=== PATIENT | male | born 1975 | race Hispanic/Latino ===

== ENCOUNTER 2016-08-19 14:06 | Emergency (ER) | payer OTHER ==
[2016-08-19 14:09] VITALS: BMI 25.8
[2016-08-19 14:12] VITALS: RESP 16; TEMP 98.4
--- NOTE | 2016-08-19 15:04 | ED PDOC ---
Arrival/HPI - General Chief Complaint: Back Pain Time Seen by Provider: 08/19/16 14:31 - History of Present Illness Narrative History of Present Illness (Text): 08/19/16 15:00 Patient presents complaining of back pain. States the location is in the lower region, feels like muscle spasms. Worst with movement and palpation. Pt states this feels identical to previous back pain quality that have happened in the past. Denies fevers/chills, denies IVDA, denies any lower extremity weakness/ numbness/paresthesias. Pt denies saddle anesthesia. Denies any urinary freq or retention. Denies bowel dysfunction/irregularity/incontinence/constipation. Past Medical History - Provider Review Nursing Documentation Reviewed: Yes - Psychiatric Hx Substance Use: No - Surgical History Hx Musculoskeletal Surgery: Yes (tib fib) - Anesthesia Hx Anesthesia: Yes Hx Anesthesia Reactions: No Hx Malignant Hyperthermia: No Family/Social History Family/Social History: Unknown Family HX Smoking Status: Never Smoked Hx Alcohol Use: No Hx Substance Use: No Allergies/Home Meds Allergies/Adverse Reactions: Allergies Penicillins Allergy (Verified 08/19/16 14:09) RASH Home Medications: Home Meds Medication Instructions Recorded Confirmed No Known Home Med 08/19/16 08/19/16 Physical Exam - Physical Exam Narrative Physical Exam (Text): 08/19/16 15:01 - Review of Systems Constitutional: Normal. absent: Fatigue, Weight Change, Fevers Eyes: Normal ENT: denies sore throat, denies tristhmus Respiratory: Normal. absent: SOB, Cough, Sputum Cardiovascular: absent: Chest Pain, Palpitations, Syncope Gastrointestinal: Normal. absent: Abdominal Pain, Diarrhea, Nausea, Vomiting Genitourinary: Normal. absent: Dysuria, Frequency, Hematuria Musculoskeletal: Back Pain. absent: Arthralgias, Neck Pain Skin: no rashes, no erythema Neurological: absent: Focal Weakness Endocrine: Normal Hemo/Lymphatic: Normal Psychiatric: No suicidal or homicidal ideations Physical exam Patient appears age appropriate in no distress, speaking full sentences without difficulty Increased hypertonicity appreciated in the lumbar region, pain quality reproduced with palpation. No midline tenderness. FROM of pt's cervical, thoracic, lumbar, and sacral regions appreciated, active/passive without any difficulty. Lower extremities with full neurological and vascular intact. Steady gait. - Systems Exam Head: Present: Atraumatic, Normocephalic Pupils: Present: PERRL Extroacular Muscles: Present: EOMI Conjunctiva: Present: Normal Mouth: Present: Moist Mucous Membranes Neck: Present: Normal Range of Motion. No: MIDLINE TENDERNESS, Paraspinal Tenderness Respiratory/Chest: Present: Clear to Auscultation, Good Air Exchange. No: Respiratory Distress, Accessory Muscle Use, Tachypneic Cardiovascular: Present: Regular Rate and Rhythm, Normal S1, S2, Peripheal Pulses Present. No: Murmurs Abdomen: Present: Normal Bowel Sounds. No: Tenderness, Distention, Peritoneal Signs, Rebound, Guarding Back: Present: No: Midline Tenderness Upper Extremity: Present: Normal Inspection. No: Cyanosis, Edema Lower Extremity: Present: Normal Inspection. No: Edema Neurological: Present: GCS=15, Speech Normal, cranial nerves II through XII fully intact with no cerebellar abnormality, neurosensory fully intact. No focal neurological deficits. Steady gait. Skin: Present: Warm, Dry, Normal Color. No: Rashes Lymphatic: Present: OX3, NI, NC Psychiatric: Present: Alert, Oriented x 3, Normal Insight, Normal Concentration Vital Signs Reviewed: Yes Vital Signs Temp Pulse Resp BP Pulse Ox 08/19/16 14:07 98.4 F 74 16 132/87 96 Temperature: Afebrile Blood Pressure: Normal Pulse: Regular Respiratory Rate: Normal Appearance: Positive for: Well-Appearing Pain Distress: None Mental Status: Positive for: Alert and Oriented X 3 Medical Decision Making ED Course and Treatment: pt received Toradol, reported symptomatic relief. Based on hx and physical, no suspicion for renal involvement, cord impingement or epidural/spinal abscess stable for dc home. instructed not to drive/operate machinery/drink/do drugs with medication pt states his PMD is Dr. Barker, states he will go to see him now after leaving the ER. Pt verbalized understands to return to the ER right away for new or worsening symptoms or for inability to f/u with PMD or specialist as instructed. Patient verbalized full agreement with and understanding of discharge instructions. States that he agrees with the plan and disposition. Verbalized and repeated discharge instructions and plan. I have given the patient opportunity to ask any additional questions. Disposition/Present on Arrival - Present on Arrival Any Indicators Present on Arrival: No History of DVT/PE: No History of Uncontrolled Diabetes: No Urinary Catheter: No History of Decub. Ulcer: No History Surgical Site Infection Following: None - Disposition Have Diagnosis and Disposition been Completed?: Yes Diagnosis: Back pain Disposition: HOME/ ROUTINE Disposition Time: 14:59 Patient Plan: Discharge Condition: GOOD Discharge Instructions (ExitCare): Chronic Back Pain (ED) Additional Instructions: PLEASE RETURN TO THE EMERGENCY DEPARTMENT FOR NEW OR WORSENING SYMPTOMS. RETURN RIGHT AWAY IF YOU CANNOT FOLLOW UP WITH YOUR PRIMARY CARE DOCTOR, CLINIC, OR SPECIALIST IN 1-2 DAYS. Please take [id number] Motrin or Tylenol for pain Referrals: Tarun Barker MD [Staff Provider] - Follow up with primary
[2016-08-19 22:39] VITALS: BP 142/76; PULSE 80; O2SAT 99
== END 2016-08-19 15:21 | disposition home or self-care (01) ==
LOC: ED 14:06
DX: M54.9 Dorsalgia, unspecified (principal)
CPT/HCPCS: 96372; 99282; J1885

== ENCOUNTER 2016-12-20 11:50 | Emergency (ER) | payer OTHER ==
[2016-12-20 11:50] VITALS: BMI 25.8
[2016-12-20 11:57] VITALS: RESP 18; TEMP 98.3; O2SAT 96
--- NOTE | 2016-12-20 12:12 | ED PDOC ---
Arrival/HPI - General Historian: Patient - History of Present Illness Time/Duration: Other (1 day) Quality: Aching Context: Home - General Chief Complaint: Back Pain Time Seen by Provider: 12/20/16 11:54 - History of Present Illness Narrative History of Present Illness (Text): 12/20/16 12:09 This 41 yo male with pmh chronic back pain, presents to this ED c/o exacerbation of lower back pain x 1 day. Patient stated pain radiates from his b/l lower back to his thighs. Patient denies trauma, fall, weakness, paresthesias, GI/ incontinence, saddle anesthesias, urinary symptoms, hematuria, testicular pain, penile discharge, fever, sob, cp, or abdominal pain. (Luis Bucsh) Past Medical History - Provider Review Nursing Documentation Reviewed: Yes - Cardiac Hx Cardiac Disorders: No - Pulmonary Hx Respiratory Disorders: No - Neurological Hx Neurological Disorder: No - HEENT Hx HEENT Disorder: No - Renal Hx Renal Disorder: No - Endocrine/Metabolic Hx Endocrine Disorders: No - Hematological/Oncological Hx Blood Disorders: No - Integumentary Hx Dermatological Disorder: No - Musculoskeletal/Rheumatological Hx Musculoskeletal Disorders: Yes Hx Back Pain: Yes - Gastrointestinal Hx Gastrointestinal Disorders: No - Genitourinary/Gynecological Hx Genitourinary Disorders: No - Psychiatric Hx Psychophysiologic Disorder: No Hx Substance Use: Yes (occasional marijuana) - Surgical History Hx Musculoskeletal Surgery: Yes (tib fib) Hx Orthopedic Surgery: Yes - Anesthesia Hx Anesthesia: Yes Hx Anesthesia Reactions: No Hx Malignant Hyperthermia: No Family/Social History - Physician Review Nursing Documentation Reviewed: Yes Family/Social History: No Known Family HX Smoking Status: Never Smoked Hx Alcohol Use: No Hx Substance Use: Yes (occasional marijuana) Allergies/Home Meds Allergies/Adverse Reactions: Allergies Penicillins Allergy (Verified 12/20/16 11:55) RASH Home Medications: Home Meds Medication Instructions Recorded Confirmed Pregabalin [Lyrica] 100 mg PO DAILY 12/20/16 12/20/16 Review of Systems - Review of Systems Constitutional: Normal. absent: Fatigue, Weight Change, Fevers, Night Sweats Eyes: Normal. absent: Vision Changes ENT: Normal Respiratory: Normal. absent: SOB, Cough Cardiovascular: Normal. absent: Chest Pain, Palpitations, Edema, Calf Pain, ROMERO , Orthopnea, Syncope Gastrointestinal: Normal. absent: Abdominal Pain, Nausea, Food Intolerance Genitourinary Male: Normal. absent: Dysuria, Frequency, Hematuria Musculoskeletal: Back Pain. absent: Arthralgias, Neck Pain, Joint Swelling, Myalgias Skin: Normal. absent: Rash Neurological: Normal. absent: Headache, Dizziness, Focal Weakness, Gait Changes , Speech Changes, Facial Droop, Disequilibrium, Seizure Endocrine: Normal Hemo/Lymphatic: Normal Psychiatric: Normal Physical Exam Temperature: Afebrile Blood Pressure: Normal Pulse: Regular Respiratory Rate: Normal Appearance: Positive for: Well-Appearing, Non-Toxic, Comfortable Pain Distress: None Mental Status: Positive for: Alert and Oriented X 3 - Systems Exam Head: Present: Atraumatic, Normocephalic Pupils: Present: PERRL Extroacular Muscles: Present: EOMI Conjunctiva: Present: Normal Mouth: Present: Moist Mucous Membranes Pharnyx: Present: Normal. No: ERYTHEMA, EXUDATE, TONSILS ENLARGED Neck: Present: Normal Range of Motion. No: Meningeal Signs, MIDLINE TENDERNESS , Paraspinal Tenderness Respiratory/Chest: Present: Clear to Auscultation, Good Air Exchange. No: Respiratory Distress, Accessory Muscle Use, Wheezes, Retracting, Rhonchi Cardiovascular: Present: Regular Rate and Rhythm, Normal S1, S2. No: Murmurs Abdomen: Present: Normal Bowel Sounds. No: Tenderness, Distention, Peritoneal Signs Back: Present: Normal Inspection, Paraspinal Tenderness (mild paravertebral tenderness b/l. No vertebral point tenderness. No vertebral step off). No: CVA Tenderness, Midline Tenderness Upper Extremity: Present: Normal Inspection, Normal ROM, NORMAL PULSES, Neurovascularly Intact, Capillary Refill < 2s. No: Cyanosis, Edema Lower Extremity: Present: Normal Inspection, NORMAL PULSES, Normal ROM, Neurovascularly Intact, Capillary Refill < 2 s. No: Edema, CALF TENDERNESS Neurological: Present: GCS=15, CN II-XII Intact, Speech Normal, Motor Func Grossly Intact, Normal Sensory Function, Normal Cerebellar Funct, Gait Normal, Memory Normal Skin: Present: Warm, Dry, Normal Color. No: Rashes Psychiatric: Present: Alert, Oriented x 3, Normal Insight, Normal Concentration Vital Signs Temp Pulse Resp BP Pulse Ox 12/20/16 14:21 74 18 145/79 96 12/20/16 13:08 79 18 148/86 96 12/20/16 11:56 98.3 F 84 18 150/93 H 96 Medical Decision Making Re-evaluation Time: 14:33 Reassessment Condition: Re-examined, Improved ED Course and Treatment: I was available for consultation during PA evaluation. The chart was reviewed by me, and I agree with disposition. The documented history was done by the physician staffing associate. The documented physical exam was done by the physician staffing associate. The documented procedures were done by the physician staffing associate. (Carlos Long) 12/20/16 14:31 Re-evaluation. Patient feels better. Discussed results and plan with patient who expresses understanding. All questions answered and there is agreement with the plan to discharge home with instructions. Patient stable for discharge. Return if symptoms persist or worsen. UA was negative for Leuk Patient stated pain has improved with Toradol IM (Luis Busch) - Lab Interpretations Lab Results: Lab Results 12/20/16 14:00: Urine Color Yellow, Urine Appearance Clear, Urine pH 6.5, Ur Specific [place] 1.015, Urine Protein Negative, Urine Glucose (UA) Negative, Urine Ketones Negative, Urine Blood Trace-lysed H, Urine Nitrate Negative, Urine Bilirubin Negative, Urine Urobilinogen 1.0 H, Ur Leukocyte Esterase Negative, Urine RBC 0 - 2, Urine WBC 0 - 2, Urine Bacteria Small - Medication Orders Current Medication Orders: Discontinued Medications Ketorolac Tromethamine (Toradol) 30 mg IM STAT STA Stop: 12/20/16 12:10 Last Admin: 12/20/16 12:30 Dose: 30 mg Disposition/Present on Arrival - Present on Arrival Any Indicators Present on Arrival: No History of DVT/PE: No History of Uncontrolled Diabetes: No Urinary Catheter: No History of Decub. Ulcer: No History Surgical Site Infection Following: None - Disposition Have Diagnosis and Disposition been Completed?: Yes Disposition Time: 14:33 Patient Plan: Discharge - Disposition Diagnosis: Back pain, Hematuria Disposition: HOME/ ROUTINE Patient Problems: Current Active Problems Problem Status Onset Back pain Acute Condition: GOOD Discharge Instructions (ExitCare): Back Pain (ED) Additional Instructions: Call private Doctor for follow up visit in 2 - 3 days. Take medication as instructed, and drink plenty of fluids. Return to emergency if symptoms worsen. Prescriptions: Ketorolac Tromethamine [Toradol] 10 mg PO Q6H PRN #20 tab PRN Reason: Pain, Severe (8-10) Referrals: Tarun Barker MD [Primary Care Provider] - Follow up with primary Foster Jeffery MD [Staff Provider] - Follow up with primary Forms: In[employer] ([place]er)
[2016-12-20 14:20] LABS: PH,URINE 6.5 (4.7-8.0); URINE BILIRUBIN NEGATIVE (NEGATIVE); URINE BLOOD TRACE-LYSED (NEGATIVE); URINE GLUCOSE (UA) NEGATIVE (NEGATIVE); URINE LEUKOCYTE ESTERASE NEGATIVE Leu/uL (NEGATIVE); URINE NITRATE NEGATIVE (NEGATIVE); URINE PROTEIN NEGATIVE mg/dL (<30 mg/dL)
[2016-12-20 14:21] VITALS: BP 145/79; PULSE 74
[2016-12-20 14:21] LABS: URINE APPEARANCE CLEAR (CLEAR); URINE COLOR YELLOW (YELLOW)
[2016-12-20 14:32] LABS: URINE BACTERIA SMALL (NEG); URINE RBC 0 - 2 /hpf (0-2); URINE WBC 0 - 2 /hpf (0-6)
== END 2016-12-20 14:52 | disposition home or self-care (01) ==
LOC: ED 11:50
DX: R31.9 Hematuria, unspecified (principal); M54.9 Dorsalgia, unspecified
CPT/HCPCS: 81001; 96372; 99283; J1885